=== PATIENT | female | born 2000 | race Caucasian/White ===

== ENCOUNTER 2022-04-14 15:35 | Emergency (ER) | payer SELFPAY ==
[~2022-04-14] VITALS: Ht 160 cm; Wt 50.0 kg
[~2022-04-14 15:35] MED LIST: NO HOME MEDS; [UNRECOGNIZED DRUG - CODE] PO
[2022-04-14 15:38] VITALS: BP 147/91
== END 2022-04-14 21:25 | disposition left against medical advice (07) ==
LOC: ER 15:35
DX: Z04.3 Encounter for examination and observation following other accident (principal); Z53.21 Procedure and treatment not carried out due to patient leaving prior to being seen by health care provider; W19.XXXA Unspecified fall, initial encounter; Y93.89 Activity, other specified; Y92.89 Other specified places as the place of occurrence of the external cause; Y99.8 Other external cause status
CPT/HCPCS: 70450

== ENCOUNTER 2025-07-04 22:07 | Emergency (ER) | payer BC, OTHER ==
[~2025-07-04] VITALS: Ht 160 cm; Wt 45.0 kg
--- NOTE | 2025-07-04 22:24 | ELECTROCARDIOGRAPH REPORT ---
[facility] Test Date: 2025-07-04 Test Time: 22:22:17 Pat Name: MARILYNN SHIN Department: [facility]- Patient ID: [facility]-[id number] Room: Gender: F Research Group Director: : [id number] Requested By: VONNIE ALDANA Order Number: [id number] Reading MD: Dr. Keyshawn Whitten Measurements Intervals [place] Rate: 79 P: 65 CA: 134 QRS: 71 QRSD: 87 T: 44 QT: 385 QTc: 442 Interpretive Statements Sinus rhythm Borderline T abnormalities, anterior leads Electronically Signed On 07-07-2025 9:40:[address] Keyshawn Whitten Please click the below link to view image of tracing.
--- NOTE | 2025-07-05 00:57 | Physician Documentation ---
History of Present Illness ~ Chief Complaint: Dizziness Stated Complaint: DIZZINESS Time Seen by MD: 00:39 Primary Medical Doctor: Una Dawn Mode of Arrival: POV HPI This is a very pleasant 24-year-old female who presents for evaluation of spinning sensation from right left. It has been going on for the last couple of years, she has never has been investigated. She came in today because the episodes has been getting much closer in proximity. He states that she used to have an episode once every couple of months, but she had three episodes with a over the last week. Most recent episode began several hours prior to arrival while she was driving to work. She states that she was feeling stressed at the time about missing work. No palliating or aggravating factors. Did not attempt to treat it. Denies any headache, chest pain, vision or hearing changes. Denies shortness a breath. Does report nausea with a dose episodes. She smokes. Denies use of drugs or alcohol. Medication Reconciliation Allergies: Coded Allergies: No Known Allergies (Unverified , 07/04/25) Scheduled Saccharomyces Boulardii (Florastor Kids), 250 MG PO DAILY Miscellaneous Medications Home Med List (No Home Medications), (Reported) Past Medical History Last Menstrual Period: Jun 23, 2025 Alcohol Use: None Drug Use: none Review of Systems ROS 10 point review of systems was performed and unless noted above in HPI is negative for acute process/complaint. Physical Exam Vital Signs: Heart Rate: 56, Respiratory Rate: 16, BP: 117/72, Pulse Oximetry: 100, Weight: 45.000 Oxygen Flow Rate: 0 Physical Exam GENERAL: Awake, alert, oriented, GCS 15, no apparent distress, non-toxic appearing, answers questions, follows commands appropriately. HEENT: Atraumatic, normocephalic, pupils equal, extraocular muscles intact, sclerae anicteric, mucus membranes moist, oropharynx is clear, no stridor. NECK: supple, full active range of motion, trachea midline, no thyromegaly, no lymphadenopathy, no JVD. CARDIOVASCULAR: regular rate/rhythm, no murmurs/gallops/rubs, Pulses are 2+ in all extremities and symmetric. Capillary refill less than 2 seconds. PULMONARY: Nonlabored, good air movement ,no respiratory distress, speaking in full sentences, clear to auscultation bilaterally, no wheezing, no ronchi, no rales, no accessory muscle use. GASTROINTESTINAL: Soft, non-tender, non-distended, normal active bowel sounds, no organomegaly, no pulsatile masses, no CVA tenderness. NEUROLOGIC: Lucid with normal mental status. Normal facial symmetry. Moves all extremities symmetrically and with purpose. No truncal ataxia. Speech is fluid without evidence of dysarthria or aphasia, no focal deficits appreciated. MUSCULOSKELETAL: There is full range of motion of all extremities. There is no joint pain or joint swelling or joint erythema. There is no muscle pain or tenderness or swelling. EXTREMITIES: warm, well-perfused, no cyanosis, no clubbing, no edema, no acute deformities. Skin: warm, dry, no rashes or lesions, no jaundice, no petechiae orpurpura. No ecchymosis. PSYCHIATRIC: Normal affect, normal insight, normal concentration. Focused exam: [She has a nice fatigable horizontal beating nystagmus] Progress Results/Orders Results/Orders Orders - BRAYDEN CHAHAL DO Ct Head (07/05/25 00:51) Completed Orders - BRAYDEN CHAHAL DO Meclizine Tablets (Antivert Tablet) (07/05/25 00:55) Cbc/Diff (07/05/25 00:51) ESR (07/05/25 00:51) C-Reactive Protein (07/05/25 00:51) PHOS (07/05/25 00:51) MG (07/05/25 00:51) Hcg Serum Ql (07/05/25 00:51) Ct Head (07/05/25 00:51) CMP (07/05/25 00:51) Drug Screen, Urine (07/05/25 00:51) Ethanol (07/05/25 00:51) Ua W/Microscopic, Cult If Ind (07/05/25 02:39) Medications Received in ER Medications (Trade) Dose Ordered Sig/Ellis Route PRN Reason Start Time Stop Time Status Last Admin Dose Admin (Antivert tablet) 25 mg ONCE ONCE PO 07/05/25 00:55 07/05/25 00:56 DC 07/05/25 00:56 25 MG Vital Signs 07/04/25 07/05/25 07/05/25 22:12 00:34 00:40 Pulse 85 56 Resp 15 16 16 B/P (MAP) 154/87 117/72 (87) Pulse Ox 98 100 O2 Flow Rate 0 Laboratory Tests Test 07/05/25 01:14 07/05/25 02:39 White Blood Count 7.7 Red Blood Count 4.61 Hemoglobin 13.7 Hematocrit 39.8 Mean Corpuscular Volume 86.4 Mean Corpuscular Hemoglobin 29.6 Mean Corpuscular Hemoglobin Concent 34.3 Red Cell Distribution Width 12.5 Platelet Count 275 Mean Platelet Volume 8.9 Neutrophils (%) (Auto) 75.0 Lymphocytes (%) (Auto) 18.9 L Monocytes (%) (Auto) 5.3 Eosinophils (%) (Auto) 0.5 Basophils (%) (Auto) 0.3 Neutrophils # (Auto) 5.8 Lymphocytes # (Auto) 1.5 Monocytes # (Auto) 0.4 Eosinophils # (Auto) 0.0 Basophils # (Auto) 0.0 CBC Comment Erythrocyte Sedimentation Rate 7 Sodium Level 140 Potassium Level 3.4 L Chloride Level 103 Carbon Dioxide Level 27.3 Anion Gap 10 Blood Urea Nitrogen 10 Creatinine 0.47 Estimated GFR/1.73 m2 > 90 BUN/Creatinine Ratio 21.3 H Glucose Level 85 Calcium Level 8.8 Phosphorus Level 4.0 Magnesium Level 2.3 Total Bilirubin 0.3 Aspartate Amino Transf (AST/SGOT) 17 Alanine Aminotransferase (ALT/SGPT) 15 Alkaline Phosphatase 68 C-Reactive Protein < 0.05 Total Protein 7.8 Albumin 4.4 Globulin 3.4 Albumin/Globulin Ratio 1.3 Human Chorionic Gonadotropin, Qual Negative Chemistry Comments Ethyl Alcohol Level < 10 Urine Specimen Description Voided Urine Color Yellow Urine Clarity Clear Urine pH 7.0 Urine Specific Byron 1.010 Urine Protein Negative Urine Glucose (UA) Negative Urine Ketones Negative Urine Occult Blood Small Urine Nitrite Negative Urine Bilirubin Negative Urine Urobilinogen 0.2 Urine Leukocyte Esterase Negative Urine RBC 0-2 Urine WBC 0-4 Urine Squamous Epithelial Cells Many Urine Bacteria 3+ Urine Culture Indicated Not ind Volume Urine Centrifuged 10 ml Urine Comment Urine Opiates Screen Negative Urine Methadone Screen Negative Urine Fentanyl Screen Negative Urine Barbiturates Screen Negative Urine Phencyclidine Screen Negative Urine Amphetamines Screen Negative Urine Benzodiazepines Screen Negative Urine Cocaine Screen Negative Urine Cannabinoids Screen Negative Drug Screen Comment Medical Decision Making Additional information obtaine: family Findings Facility Status: ED Holds, [facility] process The plan was discussed with the patient, who demonstrates clear understanding of the plan and is in agreement with the plan unless otherwise noted in the chart. All questions have been answered, all concerns were addressed unless otherwise d ocumented. I was available throughout their ED stay for frequent reassessment and questions. Differential Diagnoses (considered and possible or likely): [Vertigo, labyrinthitis, neuritis, based on negative hence unlikely posterior circulation stroke, unlikely cerebellar tumor] ??Differential Diagnoses (considered and unlikely, not requiring evaluation currently): [No evidence of trauma] MDM Data Please see HPI for the following: Independent Historians and external Records Review. Historian: [Patient] Independent Historians: ?[Family] Medication Management: [Reviewed medication list] Social History and determinants: [Reviewed] Please see the body of the note for the following: Any independent interpretations of ECG, imaging studies. All vitals signs/haemodynamics, ordered tests were independently reviewed and interpreted by myself. 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 reviewed and interpreted by me] Additionally notably showing: [Hemodynamics reviewed. The patient was not febrile, not tachycardic, no evidence of hypotension respiratory distress. CBC normal. ESR is negative. Chemistries unremarkable. CRP is undetectable. Dehydration noted. UA is nondiagnostic for UTI. Toxicology is negative. CT head shows no acute intracranial process.] Tests considered but not ordered include: [MRI can be done on an outpatient basis] Social Determinants of Health Impact: Patient was evaluated in [facility], or [facility] [place] to healthcare due to below par ratio of patient to medical providers. [] Comorbid Conditions Impacting Present Evaluation and Care/Treatment: [Smoking] Management Discussions with other Healthcare Providers: [None] Treatment and Disposition Medication Management (Given or considered): [Meclizine, fluids]. See EMR for details Consideration for Hospitalization/Escalation/Deescalation of Care: Admission for observation has been considered, [however the patient is able to tolerate p.o., their symptoms are controlled, they are able to rely on oral medications, and their chief complaint/diagnosis can be managed on outpatient basis.] ?ED Course:?[No clinical deterioration] ?Shared decision making:?[Patient is hemodynamically stable for discharge home with follow with their primary care provider. [ ] Specific and cautious return precautions provided and discussed with full understanding. Any incidental findings were also discussed and follow up recommendations given. [] All questions answered. Patient/family were able to verbalize back return precautions. Patient/family agree to plan. Copies of imaging and laboratory studies were provided.] Code status:?FULL Please see the full Electronic Medical Record for full details of nursing documentation, medications list, other records of complete past medical history and conditions, vital signs, laboratory studies, and any radiologic study interpretations by radiologists. Portions of this note were completed using [employer] dictation software and as a result there may exist minor errors in spelling. I have reviewed elements of past family and social history and agree as included in note. Differential Dx:Considerations: Include: other (See body of main note for differential diagnosis) Departure Disposition: 01 HOME / SELF CARE / HOMELESS Impression: Primary Impression: Vertigo Condition: Improved Discharge Instructions: Dizziness Referrals: NO PRIMARY CARE PROVIDER (PCP) Prescriptions Meclizine HCl (Meclizine HCl) 25 Mg Tablet 1 TAB PO Q8H PRN for dizziness/vertigo for 30 Days, #90 TAB Prov: BRAYDEN CHAHAL DO 07/05/25 Education Educated: Patient Educated regarding: diagnosis, treatment, prognosis, need for follow up Signature Scribe Signature: No scribe Attestation: Date: Jul 05, 2025 Time: 00:56 This note accurately reflects clinical decisions, work performed by myself, Brayden Chahal, BRAYDEN HIGGINS DO Jul 05, 2025 00:57
[2025-07-05 01:50] LABS: MEAN PLATELET VOLUME 8.9 FL (7.4-10.4); RED CELL DISTRIBUTION WIDTH 12.5 % (11.5-14.5)
[2025-07-05 02:19] LABS: CREATININE 0.47 MG/DL (0.40-0.90); PHOSPHORUS 4.0 MG/DL (2.3-4.5); TOTAL CARBON DIOXIDE 27.3 MMOL/L (24-32); eCRCL 132 ML/MIN; eGFR > 90 ML/MIN
[2025-07-05 02:20] LABS: HCG SERUM QL NEGATIVE
[2025-07-05 02:25] LABS: ETHANOL < 10 MG/DL (<10)
--- NOTE | 2025-07-05 02:46 | RADIOLOGY REPORT ---
CT CT HEAD INDICATION: Disequilibrium COMPARISON: None TECHNIQUE: CT of the head without intravenous contrast. RADIATION DOSE: CTDIvol: 54.98 mGy, DLP: 1226.56 mGy*cm FINDINGS: There is no evidence of acute intracranial hemorrhage, extra-axial collection, mass effect, midline shift, herniation or hydrocephalus. The ventricles, sulci and cisterns are age appropriate. The boucher-white differentiation is intact. The visualized paranasal sinuses and mastoid air cells are clear. The surrounding soft tissues and osseous structures are unremarkable. IMPRESSION: No evidence of acute intracranial hemorrhage, mass effect or hydrocephalus.
[2025-07-05 02:56] LABS: LEUKOCYTE ESTERASE ,URINE NEGATIVE (Neg); NITRITES, URINE NEGATIVE (Neg); OCCULT BLOOD,URINE SMALL (Neg)
[2025-07-05 02:59] LABS: UA COLLECTION TYPE VOIDED
[2025-07-05 03:01] LABS: SQUAMOUS EPITHELIAL CELL,UR MANY /LPF (FEW); URINE AMPHETAMINE SCREEN NEGATIVE (Neg); URINE BARBITUATE SCREEN NEGATIVE (Neg); URINE BENZODIAZEPINES SCREEN NEGATIVE (Neg); URINE CANNABINOID SCREEN NEGATIVE (Neg); URINE COCAINE SCREEN NEGATIVE (Neg); URINE METHADONE SCREEN NEGATIVE (Neg); URINE OPIATE SCREEN NEGATIVE (Neg); URINE PHENCYCLIDINE SCREEN NEGATIVE (Neg)
[2025-07-05] MEDS ORDERED: MECL-302 PO (03:06)
[2025-07-05 03:34] VITALS: BP 112/68; PULSE 64; RESP 16; O2SAT 99
== END 2025-07-05 03:35 | disposition home or self-care (01) ==
LOC: ER 22:08
DX: R42 Dizziness and giddiness (principal); F17.200 Nicotine dependence, unspecified, uncomplicated; Z79.899 Other long term (current) drug therapy
CPT/HCPCS: 36415; 70450; 80053; 80305; 80320; 81001; 83735; 84100; 84703; 85025; 85651; 86140; 93005; 99284; J8597; Q9967